=== PATIENT | male | born 1985 | race Asian ===

== ENCOUNTER 2018-08-11 16:30 | Emergency (ER) | payer OTHER ==
[~2018-08-11] VITALS: Ht 170.2 cm; Wt 84.0 kg
[2018-08-11 16:42] VITALS: Ht 170.2 cm; Wt 84.0 kg
[2018-08-11] MEDS ORDERED: AZITHROMYCIN 250 MG TAB PO ONE (19:00)
[2018-08-11] MEDS ORDERED: AZIT250T PO (20:16)
[2018-08-11] MEDS ORDERED: BENZ-6 PO (20:16)
--- NOTE | 2018-08-11 20:41 | ERD ---
ER Documentation Chief Complaint Chief Complaint cough and sob x 1 week HPI Patient is a 33-year-old male with no medical problems who presents with a cough. The patient has had a cough for 1 month. He has had no antibiotics as of yet. 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 He has said that the cough is productive of phlegm. He has no fevers. He does not currently have a primary doctor. Upon review of old medical records this is the patient's first visit to the emergency department. ROS All systems reviewed and are negative except as per history of present illness. Medications Home Meds Active Scripts Benzonatate* (Tessalon Perle*) 100 Mg Capsule, 100 MG PO Q8H PRN for COUGH, #30 CAP Prov:ANGELES DELANEY MD 08/11/18 Azithromycin* (Zithromax*) 250 Mg Tablet, 250 MG PO DAILY for 4 Days, TAB Prov:ANGELES DELANEY MD 08/11/18 Allergies Allergies: Coded Allergies: No Known Allergy (Unverified , 08/11/18) PMhx/Soc Medical and Surgical Hx: pt denies Medical Hx, pt denies Surgical Hx Hx Alcohol Use: Yes (socially ) Hx Substance Use: No Hx Tobacco Use: No FmHx Family History: diabetes Physical Exam Vitals Vital Signs Date Temp Pulse Resp B/P (MAP) Pulse Ox O2 O2 Flow FiO2 Time Delivery Rate 08/11/18 98.1 102 14 150/106 99 Room Air 18:47 (121) 08/11/18 98.9 110 20 186/99 96 16:42 (128) Physical Exam Const: No acute distress Head: Atraumatic Eyes: Normal Conjunctiva ENT: Normal External Ears, Nose and Mouth. Neck: Full range of motion. No meningismus. Resp: Clear to auscultation bilaterally Cardio: Regular rate and rhythm, no murmurs Abd: Soft, non tender, non distended. Normal bowel sounds Skin: No petechiae or rashes Back: No midline or flank tenderness Ext: No cyanosis, or edema Neur: Awake and alert Psych: Normal Mood and Affect Results 24 hrs Current Medications Medications Dose Sig/Jaguar Start Time Status Last (Trade) Ordered Route PRN Stop Time Admin Dose Reason Admin 500 mg ONCE ONCE 08/11/18 DC 08/11/18 Azithromycin PO 19:00 19:01 (Zithromax) 08/11/18 19:01 Procedures/MDM Chest x-ray negative per radiology. Patient is a 33-year-old male with no medical problems who presents with a cough for 1 month. Chest x-ray shows no pneumonia or pneumothorax. The patient will be treated for an acute bronchitis with Zithromax given the length of his symptoms. First dose was given in the emergency department. He can return for any worsening symptoms. I doubt pneumonia, pneumothorax, or pulmonary embolism. Departure Diagnosis: Primary Impression: Bronchitis Additional Impression: Cough Condition: Fair Patient Instructions: Bronchitis, Antiobiotic Treatment (Adult) Referrals: [facility] YOU HAVE RECEIVED A MEDICAL SCREENING EXAM AND THE RESULTS INDICATE THAT YOU DO NOT HAVE A CONDITION THAT REQUIRES URGENT TREATMENT IN THE EMERGENCY DEPARTMENT. FURTHER EVALUATION AND TREATMENT OF YOUR CONDITION CAN WAIT UNTIL YOU ARE SEEN IN YOUR DOCTORS OFFICE WITHIN THE NEXT 1-2 DAYS. IT IS YOUR RESPONSIBILITY TO MAKE AN APPOINTMENT FOR FOLOW-UP CARE. IF YOU HAVE A PRIMARY DOCTOR --you should call your primary doctor and schedule an appointment IF YOU DO NOT HAVE A PRIMARY DOCTOR YOU CAN CALL OUR PHYSICIAN REFERRAL HOTLINE AT IF YOU CAN NOT AFFORD TO SEE A PHYSICIAN YOU CAN CHOSE FROM THE FOLLOWING [facility] [address] [facility]. [facility] [address] [facility]. [facility] [address] [facility] [facility] [address] [facility] [facility] [address] [facility]. [facility]. [address] Additional Instructions: Call your primary care doctor TOMORROW for an appointment during the next 1 WEEK.Tell the medical assistant secretary that you were referred from this facility.See the doctor sooner or return here if your condition worsens before your appointment time. ANGELES DELANEY MD Aug 11, 2018 20:41
[2018-08-11 20:49] VITALS: BP 147/99; PULSE 87; RESP 16
== END 2018-08-11 20:57 | disposition home or self-care (01) ==
LOC: E/R 16:30
DX: J40 Bronchitis, not specified as acute or chronic (principal)
CPT/HCPCS: 71045; Z7502; Z7610; 99283

== ENCOUNTER 2018-08-15 04:16 | Emergency (ER) | payer OTHER ==
[~2018-08-15] VITALS: Ht 167.6 cm; Wt 98.6 kg
[~2018-08-15 04:16] MED LIST: AZIT250T PO; BENZ-6 PO
[2018-08-15 04:22] VITALS: BP 144/99; PULSE 103; RESP 16; Ht 167.6 cm; Wt 98.6 kg
[2018-08-15] MEDS ORDERED: PROM5SYR2 PO (04:43)
[2018-08-15] MEDS ORDERED: PRED20TA PO (04:43)
--- NOTE | 2018-08-15 04:45 | ERD ---
ER Documentation Chief Complaint Chief Complaint dx with Bronchitis Sat states he is not better HPI 33-year-old male was diagnosed with bronchitis and completed a [place] but is not feeling better. He continues to have dry cough that is worse at night. No hemoptysis or unplanned weight loss. No chest pain or shortness of breath. ROS All systems reviewed and are negative except as per history of present illness. Medications Home Meds Active Scripts Promethazine HCl/Codeine (Prometh-Codein 6.25-10 mg/5 ml) 5 Ml Syrup, 5 ML PO Q8, #200 ML Prov:CHER LA PA-C 08/15/18 Prednisone* (Prednisone*) 20 Mg Tab, 60 MG PO DAILY for 5 Days, TAB Prov:CHER LA PA-C 08/15/18 Benzonatate* (Tessalon Perle*) 100 Mg Capsule, 100 MG PO Q8H PRN for COUGH, #30 CAP Prov:ANGELES DELANEY MD 08/11/18 Azithromycin* (Zithromax*) 250 Mg Tablet, 250 MG PO DAILY for 4 Days, TAB Prov:ANGELES DELANEY MD 08/11/18 Allergies Allergies: Coded Allergies: No Known Allergy (Unverified , 08/11/18) PMhx/Soc Medical and Surgical Hx: pt denies Surgical Hx Hx Respiratory Disorders: Yes (bronchitis) Hx Alcohol Use: Yes (socially ) Hx Substance Use: No Hx Tobacco Use: No Smoking Status: Never smoker FmHx Family History: No diabetes Physical Exam Vitals Vital Signs Date Temp Pulse Resp B/P (MAP) Pulse Ox O2 O2 Flow FiO2 Time Delivery Rate 08/15/18 98.0 103 16 144/99 97 04:22 (114) Physical Exam Const: No acute distress Head: Atraumatic Eyes: Normal Conjunctiva ENT: Normal External Ears, Nose and Mouth. Neck: Full range of motion. No meningismus. Resp: Clear to auscultation bilaterally Cardio: Regular rate and rhythm, no murmurs Abd: Soft, non tender, non distended. Normal bowel sounds Skin: No petechiae or rashes Back: No midline or flank tenderness Ext: No cyanosis, or edema Neur: Awake and alert Psych: Normal Mood and Affect Procedures/MDM Patient here with bronchitis. Lungs are clear. He already completed antibiotics. Prescription for a course of prednisone and cough syrup was given. Patient counseled regarding my diagnostic impression and care plan. Prior to discharge all questions answered. Pt agrees with treatment plan and understands strict return precautions. Pt is instructed to follow up with primary care provider within 24-48 hours. Precautionary instructions provided including instructions to return to the ER if not improving or for any worsening or changing symptoms or concerns. Departure Diagnosis: Primary Impression: Bronchitis Condition: Stable Patient Instructions: Bronchitis, No Antibiotic (Adult) Additional Instructions: Call your primary care doctor TOMORROW for an appointment during the next 1-2 days.See the doctor sooner or return here if your condition worsens before your appointment time. CHER LA PA-C Aug 15, 2018 04:45
== END 2018-08-15 05:18 | disposition home or self-care (01) ==
LOC: FTE 04:16
DX: J40 Bronchitis, not specified as acute or chronic (principal)
CPT/HCPCS: 99283